=== PATIENT | female | born 1955 | race Caucasian/White ===

== ENCOUNTER → 2020-03-25 12:50 | Outpatient (ROUT) | payer OTHER, SELFPAY ==
[2020-03-26 17:06] LABS: COVID19 Sendout Not Detected (Not Detect)
== END ==
PROVIDERS: Visit Provider Physician Assistant
DX: Z11.59 Encounter for screening for other viral diseases (principal)
CPT/HCPCS: 87635

== ENCOUNTER 2020-03-28 08:34 | Day surgery (SDC) | payer OTHER, SELFPAY ==
[2020-03-23 07:13] VITALS: BMI 35.9
[2020-03-28] VITALS (16 sets, daily range): BP systolic 96–147; BP diastolic 53–87; PULSE 56–92; RESP 12–26; TEMP 35.6–36.8; O2SAT 97–100; BMI 35.5
--- NOTE | 2020-03-28 | DI.RAD.S_ITS ---
PROCEDURE: XR HIP W PEL IF DONE LT 2V INDICATIONS: TOTAL LEFT HIP TECHNIQUE: AP pelvis and lateral view of the left hip acquired. COMPARISON: [facility], XR PELVIS WITH LATERAL HIP LEFT, 01/11/2020, 16:27. FINDINGS: Bones: Patient is status post left hip arthroplasty, with hardware components in expected positions. The hip joint appears congruent. The visualized bony structures appear intact. Soft tissues: Overlying postoperative changes are noted. No suspicious soft tissue densities. IMPRESSION: Expected postoperative appearance of the left total hip arthroplasty. Dictated by: Vidal Hernández M.D. on 03/28/2020 at 14:12 Approved by: Vidal Hernández M.D. on 03/28/2020 at 14:14
--- NOTE | 2020-03-28 | DI.RAD.S_ITS ---
PROCEDURE: XR PELVIS 1-2V INDICATIONS: INTER OP TECHNIQUE: Intra-operative view of the pelvis and hip acquired. COMPARISON: None. FINDINGS: Bones: Intraoperative devices prior to placement of arthroplasty prostheses are in expected positions. No fractures or suspicious bony lesions. Soft tissues: Overlying surgical retractors are present, along with other intraoperative changes. IMPRESSION: Expected postsurgical change for placement of arthroplasty prosthesis. Dictated by: Latonia George MD, PhD on 03/28/2020 at 12:48 Approved by: Latonia George MD, PhD on 03/28/2020 at 12:49
[2020-03-28] MEDS: ACETAMINOPHEN 325 MG TABLET 975 MG PO (09:01)
[2020-03-28] MEDS: LACTATED RINGERS 1,000 ML 42 ML IV ×2 (09:03→11:50)
[2020-03-28] MEDS: CELECOXIB 200 MG CAPSULE PO (09:03)
[2020-03-28] MEDS: VANCOMYCIN 1,000 MG/200 ML PIGGYBACK 200 MG IV (10:05)
--- NOTE | 2020-03-28 10:15 | PM.PREOP ---
Pre-operative Note COVID-19 COVID-19 status: Negative Result date/Date tested (Pos, Neg/Pending): 03/25/20 Interval Note History & Physical reviewed/Exam performed by Physician: Yes Changes to H&P: No H&P completed within 30 days and has changed as indicated here:: Continued ongoing significant left hip pain. HEENT is benign, lungs clear, cor regular rate and rhythm, abdomen soft and benign, left hip pain with range of motion restricted range of motion mild tenderness over the greater trochanter x-rays are reviewed that show significant left hip osteoarthritis. Plan is for left total hip arthroplasty posterior approach.
--- NOTE | 2020-03-28 10:16 | PM.OP.1 ---
Operative Date/Time/Diagnoses Date of procedure: 03/28/20 Time of procedure: 10:16 Pre-op diagnosis: Severe left hip osteoarthritis Post-op diagnosis: same Procedure & Clinicians Procedure: Left total hip arthroplasty Same procedure as scheduled: Yes Indications: The patient has had progressively worsening left hip pain with radiographic changes consistent with arthritis. Non-operative management has failed and the patient has requested total hip replacement. The risks, benefits and alternatives to surgery were discussed with the patient prior to proceeding. Risks discussed included, but were not limited to, failure to relieve pain, leg length discrepancy, dislocation, stiffness, infection, nerve damage, deep venous thrombosis, pulmonary embolism, stroke, coma, heart attack, permanent paralysis and , as well as the potential need for eventual revision of the prosthetic. Surgeon: Ailyn Loya Call Center Support Consultant: Tal Mcclain Anesthesia Type: General and Spinal Operative Notes Findings: Severe left hip osteoarthritis, tense effusion, adequate stability, adequate bone Closure Type: primary Specimen(s): none sent Prosthetic devices, grafts, tissues, transplants, or devices: Loya [employer] Nephew R3 50, size 4 anthology A standard offset, +0 by 32 oxinium Applied: drain(s) Estimated Blood Loss (mL): 250 Blood products transfused: none Procedure in detail: The patient was seen in the pre-operative area, where the patient identified the left hip as the operative site and this was marked with my initials. The patient received pre-operative antibiotics and was taken to the operating room and placed on the operative table in the right lateral decubitus position after satisfactory anesthesia. A time lock expert out was performed. The left leg was prepared from the ankle to the iliac crest with ChloroPrep in the usual fashion and draped through sterile drapes. The hip was approached through an approximately 20 cm incision centered over the greater trochanter and curving gently posteriorly as it went proximally. This was carried sharply to the fascia earnestine, which was divided and retracted with a self retaining retractor. She had copious saw soft tissues and subcutaneous tissues. The trochanteric bursa was excised with care being taken to avoid the sciatic nerve, which was identified and protected throughout the case. The short external rotators were incised and the capsulomuscular flap was raised and tagged for later repair. The hip was dislocated, and a femoral neck osteotomy performed approximately 15 mm above the lesser trochanter. Retractors were placed around the femur. The canal was opened with a box cutting osteotome, followed by a T handled reamer and a lateralizing reamer. The chili pepper broach was then used, followed by sequential broaching until there was good stability of the broach in the femur. She had a very tight canal and it was broached with an anthology a based on a type a femur. Retractors were placed to expose the acetabulum. The labrum and central soft tissues were removed. Reaming was performed initially going up in 2 mm increments, then 1 mm increments until good bite was obtained with an odd sized reamer. The cup 1 mm larger than the last reamer was then inserted using the appropriate anteversion guides. A cup was noted to be stable but it was further stabilized with a single screw. A trial neutral liner was placed. The broach was placed in the canal. A trial head and neck were then placed and the hip relocated and checked for leg length and stability. An intraoperative film confirmed the component position and no evidence of fracture. The patient was stable in the position of sleep, of squatting, and could be put through a range of motion with 45 degrees internal rotation without dislocation. At 90 degrees flexion, internal rotation to 80? was possible before dislocation. This was felt to be satisfactory and the appropriate components were opened, and the trials were removed. The acetabular liner was impacted into position. The final stem was then impacted into the prepared femoral canal. A brief Betadine soak was performed while trialing with head options. The hip was meticulously irrigated with normal saline. Finally the femoral head was impacted onto the stem. The acetabulum was cleared of all material and the hip relocated one final time. The capsulomuscular flap was then repaired to the greater trochanter though an awl hole using the tag sutures. The short external rotators were repaired with a nonabsorbable suture. A deep drain was placed and brought out anteriorly. The fascia earnestine was closed with Vicryl. The subcutaneous layer was closed with barbed sutures and SteriStrips. An toney dressing was applied and the patient was taken to recovery having tolerated the procedure well. Complications: none Post-operative Condition: stable Disposition: Acute Care Plan for aftercare: The patient will be maintained on a standard total hip replacement protocol with weight bearing as tolerated and posterior hip precautions. The patient will receive Aspirin and sequential compression devices for DVT prophylaxis. The patient will be discharged home when safe for the home environment.
[2020-03-28] MEDS: CEFAZOLIN 2 GM/100 ML FROZ.PIGGY IV ×2 (11:06→20:24)
[2020-03-28] MEDS: TRANEXAMIC ACID 1,000 MG VIAL 1000 MG IV (11:19)
--- NOTE | 2020-03-28 11:29 | SUR.OPER ---
Lateral on padded OR bed. Gel axillary roll. Arms secured on padded armboard with pillow supporting top arm. Padded hip positioner braces x4 - anterior and posterior chest and pelvis. Additional gel pad used anterior pelvis. Gel pad under bottom leg from knee to foot and secured with tape over sheet.
[2020-03-28] MEDS: BUPIVACAINE 0.25% W/ EPI 30 ML VIAL 60 ML INJ (11:36)
[2020-03-28] MEDS: BUPIVACAINE LIPOSOME 266 MG/20 ML VIAL INJ (11:37)
[2020-03-28] MEDS: SODIUM CHLORIDE IRRIG SOLUTION 250 ML, POVIDONE-IODINE SPONGE STICKS 1 APPLIC IRR (11:39)
[2020-03-28] MEDS: SODIUM CHLORIDE IRRIG SOLUTION 250 ML, EPINEPHrine 1 MG IRR (11:52)
[2020-03-28] MEDS: HYDROMORPHONE 2 MG INJ IV ×2 (13:55→14:09)
[2020-03-28] MEDS: OXYCODONE/ACETAMINOPHEN 5/325 TABLET 1 TAB PO (14:19)
[2020-03-28] MEDS: ACETAMINOPHEN 325 MG TABLET 650 MG PO ×2 (15:36→20:24)
[2020-03-28] MEDS: LACTATED RINGERS 1,000 ML 125 ML IV ×2 (15:36→23:42)
--- NOTE | 2020-03-28 15:44 | PC.NURSE ---
Post-op: Late entry Arrived to room 217 at 1440. Awake and alert, oriented X3. Dressing to L hip C/D/I, TOÑA battery functioning normally. Hemovac patent to compression. Reported still feeling numb/tingly in BLE's, but is able to move BLE's and wiggle toes. Cap refill <2 sec, PP+, skin warm + pink. Reported feeling uncomfortable when asked about pain, medicated with Tylenol per e-mar. Patient had a brief episode where she was shaky, stated she felt trapped and like maybe it's a panic attack. We disconnected from SCD's and helped her reposition in bed. Encouraged her to focus on breathing, and she felt better fairly quickly. Vitals stable, cont. pulse ox in place. Room air. IVF per order, site in L hand WNL. Tolerating water without N/V. Oriented to room and call light and encouraged to make needs known. Light and belongings within reach, bed alarm on.
[2020-03-28] MEDS: IBUPROFEN 400 MG TABLET PO ×2 (16:48→21:49)
[2020-03-28] MEDS: DOCUSATE 100 MG CAPSULE PO (20:25)
[2020-03-28] MEDS: ASPIRIN EC 81 MG TABLET PO (20:26)
--- NOTE | 2020-03-28 22:56 | PC.NURSE ---
Evening shift: Pt freshly post-op. No pain, some nausea. Pt moderately anxious and shaking. Sudden onset emesis, 100ml out. Pt. feels much improved. TOÑA dressing not maintaining suction. Dressing removed and new one applied, adequate seal and suction. Pain 1-4 on PO meds throughout shift. OOB to BSC, to chair, moved appropriately and tolerated well. Voided. Back to bed after dinner. Up to bathroom later in shift, again tolerated well.
[2020-03-29] MEDS: IBUPROFEN 400 MG TABLET PO ×3 (01:43→08:15)
[2020-03-29] MEDS: CEFAZOLIN 2 GM/100 ML FROZ.PIGGY IV (02:26)
[2020-03-29 05:58] VITALS: BP 127/67; PULSE 79; RESP 16; TEMP 36.6; O2SAT 95
[2020-03-29 06:01] LABS: Hematocrit 30.3 % (36-46); Hemoglobin 10.4 g/dL (12.0-16.0)
[2020-03-29] MEDS: LEVOTHYROXINE 100 MCG TABLET PO (06:09)
[2020-03-29] MEDS: LIOTHYRONINE 5 MCG TABLET 10 MCG PO (06:09)
--- NOTE | 2020-03-29 06:11 | PC.NURSE ---
Patient resting in bed, IV infusing LR at 125, SCD's on, patient reports pain 08/27. Left hip dsg is CDI, HV is patent and compressed. Denies further needs at this time. Call light in reach.
--- NOTE | 2020-03-29 07:54 | PM.PN.1 ---
Subjective Subjective Date Patient Seen: 03/29/20 Time Patient Seen: 07:54 Interval history: She notes that she is doing pretty well she is sitting up in a chair. She has [id number] hip pain. It is well controlled with oral pain medications and she has not taken any narcotic yet. Exam Vital Signs (past 8 hours): - 03/29/20 05:58 Temperature 97.9 F Pulse Rate 79 Respiratory Rate 16 Blood Pressure 127/67 Pulse Oximetry 95 Oxygen Delivery Method Room Air Oxygen Flow Rate 0 Narrative Exam Narrative: Calfs are soft bilaterally, minimal pain with gentle range of motion able to do an active straight leg raise Objective Labs Result Diagrams: 03/29/20 05:24 Labs: Laboratory Results - last 24 hr 03/29/20 05:24 Hgb 10.4 L Hct 30.3 L Assessment & Plan Assessment & Plan narrative: Doing well status post left hip arthroplasty. Plan is to discontinue her drain continue to mobilize her with physical therapy and discharged to home in the afternoon. She will take baby aspirin for DVT prophylaxis.
[2020-03-29] MEDS: DOCUSATE 100 MG CAPSULE PO (08:15)
[2020-03-29] MEDS: ASPIRIN EC 81 MG TABLET PO (08:16)
[2020-03-29] MEDS: ACETAMINOPHEN 325 MG TABLET 650 MG PO (08:16)
[2020-03-29 09:00] VITALS: BP 122/73; PULSE 86; RESP 16; TEMP 37; O2SAT 99
[2020-03-29] MEDS: OXYCODONE IR 5 MG TABLET PO (09:10)
--- NOTE | 2020-03-29 10:12 | PC.NURSE ---
Addendum entered by Hortencia Saba R.N. 03/29/20 12:08: Pt left unit at 1208 via wheelchair in no distress with INSPECTOR REPAIRER escort. pt stated not needing any additional pain meds prior to discharge. Pt's present to drive pt home. Addendum entered by Hortencia Saba R.N. 03/29/20 11:27: Discharge summary packet reviewed with pt. No further voiced concerns. States is ready for discharge. Pt aware of follow up appointments, S/S of infection. has Miralax at home to prevent constipation. Awaiting on prescriptions, Surgical PA to bring to unit. Pt has all her belongings. Original Note: Day Shift- Hemovac removed without difficulty from anterior left hip per verbal order by Dr. Loya at 0730 AM. Area cleansed with NS, pat dry with gauze and folded 4X4 gauze and tegaderm placed over hemovac site. Left posterior hip TOÑA dressing CDI with scant spot drainage to distal end of dressing. Denies numbness or tingling. Had AM PT session and per PT René, pt is ready for discharge. pt's will be picking up pt upon discharge.
--- NOTE | 2020-03-29 11:12 | PT.IIE ---
Current Diagnoses Unilateral primary osteoarthritis, left hip (03/28/20) Surgery Performed Operation Date: 03/28/20 10:45 Actual Procedures p Total Hip Arthroplasty(Left) - Ailyn Loya MD Surgical History (Last Updated 03/23/20 @ 07:39 by Doris Bear, RN) Hx of appendectomy (Acute) Hx of arthroscopy of right knee (Acute) Medical History (Last Updated 03/23/20 @ 07:39 by Doris Bear RN) Depression (Acute) Hypothyroidism (Acute) Numbness and tingling in right hand (Acute) ADELINE on CPAP (Acute) Osteoarthritis (Acute) Physical Therapy Inpatient Evaluation/Re-Eval M1 PT/OT-IP Prior Functional Status Start: 03/29/20 08:36 Freq: NEEDED Status: Active Protocol: Document 03/29/20 10:58 HH (Rec: 03/29/20 11:11 [email or web address]) Medical Review Prior Functional Status Medical History Reviewed Yes Diet/Fluid Consistency Regular Communication no deficits noted. Mobility and Gait independent ambulator for home and community without using AD Activities of Daily Living and IADL's independent for all ADLs and IADLs without AD Social History Household Members spouse Living Arrangements House Number of Floors (Floors) One Floor Number of Stairs To Enter/Railing? 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 Spouse is retired and will be able to assist as needed. Pt stated he is well aware of patient handling since he had B TKAs. 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 M2 PT-IP Current Condition Start: 03/29/20 08:36 Freq: NEEDED Status: Active Protocol: Document 03/29/20 10:58 HH (Rec: 03/29/20 11:11 [email or web address]) Physical Therapy Current Condition Current Condition Evaluation Date 03/29/20 Treatment Diagnosis L IZAIAH (posterior approach), difficulty in walking Onset Date 03/28/20 Precautions Posterior Hip Precautions No Hip Flexion > 90 degrees,No Hip Internal Rotation,No Hip Adduction Weight Bearing Status Weight Bearing Status Weight Bear as Tolerated M3 PT-IP Subjective Start: 03/29/20 08:36 Freq: NEEDED Status: Active Protocol: Document 03/29/20 10:58 (Rec: 03/29/20 11:11 [email or web address]) Subjective Physical Therapy Visit Type Type Initial Evaluation Visit Start Time 09:15 Visit Stop Time 09:50 Total Visit Minutes 35 Number of SUPERVISOR SLATE SPLITTING Visits 0 Physical Therapy Visit Comments Patient Comments I am feeling pretty good. Patient Goals to return home with Therapy Pain Assessment Pain When Pain Assessed During Mobility Pain Present Pain Present Pain Reported Location Left Hip Intensity 4 Scale Used Numeric (0 - 10) Description Aching Pain Management Techniques Timing of Activity with Medications M4 PT-IP Mobility and Gait Start: 03/29/20 08:36 Freq: NEEDED Status: Active Protocol: Document 03/29/20 10:58 (Rec: 03/29/20 11:11 [email or web address]) PT-Transfer Assessment Sit to and From Stand Sit to and from Stand Standby Assistance,Contact Guard Assistance,Use of Upper Extremities Equipment Transfer Assistive Device Gait Belt,Front Wheeled Walker Orthotic/Prosthetic Devices or Brace: No Transfers Transfer Destination Chair Transfer Technique Stand Step Pivot Transfer Ability Level of Assist Standby Assistance,Contact Guard Assistance,Use of Upper Extremities Comments Mobility Comments Pt was up in chair upon PT arrival. Pain at 09/27. She agreed to mobilize with PT. Pt initially stood up from chair by leaning towards R side with a staggered stance and pushed off through R LE and B UEs CGA. She then proceed to amb towards room door with step to gait. She then cont amb from her room to the end of [facility] with mild antalgic gait with step over pattern slowly. Pt reports increased soreness but well managed pain. Pt walked back to her room after stair climbing and safely transferred to chair with staggered stance SBA. She then rested in chair comfortably who was also able to recall all post op precautions. She stated I am ready to go home . Call light placed within reach. Gait Assessment Gait Gait Assistance Required: Standby Assistance Distance (Feet) 280 Able to Maintain Weight Bearing Status Yes During Gait Assistive Devices Assistive Device Gait Belt,Front Wheeled Walker Orthotic/Prosthetic Devices or Brace: No Gait Deviations General Gait Pattern Antalgic,Decreased Stride Length,Decreased Feet Clearance,Step-to Gait Factors Limiting Gait Function Factors Limiting Gait Function Decreased Activity Tolerance, Decreased Strength,Limited Range of Motion,Pain,Poor Balance Comments Gait Comments see mobility comments. Stair Climbing Assessment Evaluation Level of Assist On Stairs Contact Guard Assistance Devices Stair Climbing Assistive Devices Front Wheel Walker Technique/Endurance Stair Climbing Direction Ascend and Descend Stair Climbing Technique Step to Step Number of Steps Climbed 3 Query Text: Stair Climbing Set # Repetitions (reps) 3 Comments Stair Climbing Comments pt was able to verbalize proper stepping techniques prior to stair climbing without therapist's advice. She was able to complete 3 sets of 3 steps with R rail up and L rail down safely and no LOB noted. PT-Balance Assessment Sitting Balance and Reactions Static Sitting Balance Ability Normal Dynamic Sitting Balance Ability Normal Standing Balance and Reactions Static Standing Balance Ability Good Dynamic Standing Balance Ability Good Device Used FWW M5 PT-IP Objective Assessments Start: 03/29/20 08:36 Freq: NEEDED Status: Active Protocol: Document 03/29/20 10:58 (Rec: 03/29/20 11:11 [email or web address]) Orientation Orientation/Cognition Level of Alertness Alert Orientation Name,Age,Birthday,Month,Date, Year,Day of Week,Place, Situation Language Function Ability No Deficits Noted Safety Awareness Understands Safety Issues Memory Description No Deficits Noted Gross Range of Motion Upper Extremity ROM Assessment Within Functional Limits Lower Extremity ROM Assessment Left Impaired Strength Upper Extremity Strength Assessment Within Functional Limits Lower Extremity Strength Assessment Left Impaired Hip 3/5 Knee 4+/5 Ankle 5/5 Coordination Assessment Gross Coordination Gross Coordination WNL Sensation Assessment Sensation Gross Sensation WNL Muscle Tone Muscle Tone WNL Yes M6 PT-IP Treatment Start: 03/29/20 08:36 Freq: NEEDED Status: Active Protocol: Document 03/29/20 10:58 (Rec: 03/29/20 11:11 [email or web address]) Physical Therapy Treatment Exercises Exercises Ankle Pumps,Gluteal Sets,Quad Sets Education Education Provided Precautions,Weight Bearing Status,Post-Op Packet,Safety M7 PT-IP Assessment and Plan Start: 03/29/20 08:36 Freq: NEEDED Status: Active Protocol: Document 03/29/20 10:58 (Rec: 03/29/20 11:11 [email or web address]) PT Summary Assessment and Plan Potential Rehabilitation Potential Excellent Status of Condition at Evaluation Stable Summary Impairments Pain,ROM,Strength,Balance,Bed Mobility,Transfers,Gait, Activity Tolerance Progress Towards Goals Safe For Discharge Assessment Summary This is a low complexity evaluation for this 65 yo female s/p POD1 L IZAIAH ( posterior approach). Upon assessment, pt did very well and ambulated 280ft with FWW SBA followed by stair climbing with CGA and 1 rail. Pt demonstrated safe techniques and able to recall all post op precautions. She also stated she does not need any CG training and felt confident enough to be d/c home with assistance as needed at this point. Frequency of Treatment Frequency Of Treatment Discharge Recommendations To Nursing Amount of Assist Needed Standby Assistance Discharge Recommendations PT Discharge Recommendations Home with Assistance, Outpatient PT Transportation Needs at Discharge Private Vehicle
--- NOTE | 2020-03-29 11:46 | CM.DANOTE ---
Patient is a 65 year old female who was admitted on 03/28/20 for LT IZAIAH. Pt has [employer] for insurance and her PCP is Dr. Loan Dickerson. EMR was reviewed. Per Ortho MD, pt tolerated procedure well and stable for d/c home today pending PT recommendations and no identified barriers to discharge. Per PT, recommending safe d/c home with spouse assist and outpt PT. SW met briefly bedside with pt and explained role and confirmed pt lives in [facility] with her spouse who is retired and able to provide assist at d/c. Pt is active and independent at baseline and denies any hx of HH or SNF. Pt still works and is comfortable with d./c home later today via spouse POV. Plan: Patient to d/c home today via spouse POV and outpt PT and no SW needs at this time. [place] Discharge Planning/Care Management CM Discharge Assessment Start: 03/29/20 11:45 Freq: Status: Active Protocol: Document 03/29/20 11:45 BF (Rec: 03/29/20 11:46 BF [id number]) Discharge Planning Assessment Assigned Biodiesel Plant Superintendent SHIRA Alonzo DPOA/Assigned Designee Name informally spouse Yasir Contact Information [phone] Advance Directives? No Advance Directives on File No History Provided By Patient,Medical Record Has Patient been admitted in last 30 No days? Prior Living Arrangements House Household Members spouse Type of transporation used prior to Drives own vehicle admit Independent with ADL's Yes Is patient alert and oriented? Yes Caregiver for Another No Community Services used prior to Physical Therapy admission: DME Already Rented / Owned FWW / Walker Patient/Family Preference OP PT Therapy Barriers to Discharge No Discharge Plan Home Community Services Physical Therapy Transportation Arrangement Spouse retired and able to provide transport home Referrals Initiated None needed Whiteboard Updated in Patient Room with Yes name and ext. # of Biodiesel Plant Superintendent Review Status In Process Please Provide Date Initial DC 03/29/20 Assessment Was Performed Next Review Type Continued Stay Review Pre-Anesthesia Assessment Start: 03/23/20 07:13 Freq: Status: Complete Protocol: Document 03/23/20 07:13 CAB (Rec: 03/23/20 07:51 CAB [id number]) Pre-Anesthesia Assessment Preferred Name Mariama or Shireen Patient Information Reviewed Via Phone Assessment Assessment Completed With Patient Comment Pt needs to do labs/EKG, COVID screen @ 03/25/20 Primary Care Provider Atif Zuniga Seen Specialist in Last 12 Months Yes Specialist Seen Orthopedist Primary Language Nepalese Height 162.56 cm Weight 94.801 kg Body Mass Index (BMI) 35.9 Hearing Ability Normal Visual Assist Magnifying Glass Dentition Type Teeth, Natural Present Barriers to Learning None Other Aids Yes: CPAP Hx Anesthesia Reactions Yes: Fentanyl causes hypotension and bradycardia Hx Family Anesthesia Reaction No Hx Malignant Hyperthermia No Hx Blood Transfusions Yes: Approx 2009 r/t postmenopausal bleeding Hx Blood Transfusion Reaction No Anesthesia Review Requested No alcohol intake current alcohol intake frequency holidays/special occasions only Smoking Status Never smoker Substance Use Type does not use Pain Present Pain Reported Musculoskeletal Symptoms Abnormal Gait,Difficulty Walking,Joint Pain,Numbness, Tingling History of Falling (Recent or History of No ) Patient is completely paralyzed or No completely immobile Mental Status Oriented to own ability Is patient on oxygen? No Does patient have SEE/SOB No Hx Sleep Apnea Yes CPAP/BIPAP use prescribed and used routinely Will Bring CPAP/BIPAP DOS Yes Currently Taking a Beta Dontrell No Can You Climb a Flight of Stairs Without Yes SOB Hx Chest Pain No Hx SOB No Hx Syncope or Dizziness No Anti-Coagulant Therapy No Has a Lead Supply Worker No Cardiac Testing No Hx Pacemaker/ICD No Pacemaker Rep Required? No Cardiac Clearance Received Not Applicable Diet Type At Home Regular dysphagia No Urinary Catheter Present No Hx Urinary Self Catheterization No Diabetes No Patient No Lactating No Hx Drug Resistant Organism No Presence of External or Internal Medical Yes: CPAP Devices Have you had any close contact with No someone diagnosed with COVID-19? Marital Status Lives With spouse Prior Living Arrangements House Number of Floors (Floors) Two Floors Support System Spouse Does the Patient Have Assistance After Yes Surgery Patient Discharge Plan Description Return Home Comment Pt advised overnight length of stay per surgeon Feels Safe in Current Environment Yes Been Physically Hurt or Threatened By a No Person in Current Environment Do you have thoughts of harming yourself None or others? Are you currently considering suicide? No Do you have a plan to hurt yourself or No Plan others? Do You Have Any Spiritual Beliefs That No May Affect Your HC Choices? Do You Have Any Cultural Practices That No May Affect Your HC Choices? Comment Ep[employer]opalian Who Can We Speak to About Patient's Care Family, friends Identifying Code for Release of Patient Declines to issue Information Health Care Proxy/Next of Kin Yasir () Health Care Proxy Emergency Contact Name Yasir () Emergency Contact Advance Directives? No Power of Repairer Cylinder Heads No PAC Instructions Bring CPAP/BIPAP,Do not shave/ clip surgical site,Durable medical equipment,Medications to take/avoid,Nasal antibiotic ,No ETOH/petroleum product on skin DOS,NPO,Post-op transportation,Pre-surgical wash,Sensory aids,Sturdy shoes /comfortable clothes,Do not bring valuables and remove jewelry
== END 2020-03-29 12:08 | disposition home or self-care (01) ==
LOC: OR 08:38 → AC 11:52
PROVIDERS: PCP Family Medicine; Referring Provider Orthopaedic Surgery; Visit Provider Orthopaedic Surgery
PROC: 0SRB0JZ Replacement of Left Hip Joint with Synthetic Substitute, Open Approach (ICD-10-PCS; CPT 27130; principal; 2020-03-28 10:45)
DX: M16.12 Unilateral primary osteoarthritis, left hip (principal); E66.9 Obesity, unspecified; G47.33 Obstructive sleep apnea (adult) (pediatric); F32.9 Major depressive disorder, single episode, unspecified
CPT/HCPCS: 27130; 36415; 72170; 73502; 85014; 85018; 97116; 97161; C1776; C9290; J0171; J0690; J1170; J2250